=== PATIENT | female | born 1975 | race Caucasian/White ===

== ENCOUNTER → 2019-10-21 | Outpatient (CLI) | payer OTHER ==
[~2019-10-21] MED LIST: ADVIL200 M3 PO; AUGMENTIN 875-1 EACH PO; FISH OIL 1,0001 EAC9 PO; FLONASE 0.05%50 MCG NARES; IRON325 M1 PO; LINZESS145 MCG PO; LIPITOR40 MG PO; PREVACID15 MG PO; PROAIR HFA8.5 GM INH; PROBIOTIC1 EAC2 PO; SERTRALINE HCL100 MG PO; SINGULAIR 10 MG10 M1 PO; VITAMIN B12-FO1 EAC1 PO; VITAMIN C1000 MG PO; WELLBUTRIN 75 M75 M1 PO
== END ==
LOC: LAB 11:35
PROVIDERS: ATTEND Student in an Organized Health Care Education/Training Program
DX: Z01.812 Encounter for preprocedural laboratory examination (principal); Z11.59 Encounter for screening for other viral diseases

== ENCOUNTER 2019-10-25 06:24 | Day surgery (SDC) | payer OTHER ==
[~2019-10-25] VITALS: Ht 170.2 cm; Wt 103.0 kg
--- NOTE | ~2019-10-25 | O ---
[facility] [place] [address] [place] [address] OPERATIVE REPORT Name: KIRSTEN HOGAN Room #: [facility]-[address] [place] [address] M.R.#: [id number] Admission: 10/25/19 Attend Phys: Ilia Delatorre MD Discharge: Date of : 77 Report #: [id number] THIS REPORT FOR: cc: [facility] - No family physician/PCP [facility] - No family physician/PCP Ilia Delatrore MD ~ CC: [facility] physician/PCP Ilia Delatorre DATE OF SERVICE: 10/25/2019 PREOPERATIVE DIAGNOSES: Chronic tonsillitis, chronic sinusitis, tonsil and adenoid hypertrophy. POSTOPERATIVE DIAGNOSES: Chronic tonsillitis, chronic sinusitis, tonsil and adenoid hypertrophy. OPERATIVE PROCEDURE: Tonsillectomy and adenoidectomy. ANESTHESIA: General endotracheal. DESCRIPTION OF PROCEDURE: The patient was taken to the operating room and placed in a supine position. General anesthesia was induced by endotracheal intubation. Once adequate general anesthesia was obtained, the patient draped in a sterile manner. A James-Kenny mouth gag was placed in the patient's mouth and tongue was deviated upward. Red rubber catheters were placed through the nose and nasopharynx and out the oropharynx and oral cavity to elevate the soft palate and the nasopharynx was visualized indirectly using a mirror. The adenoid was hypertrophied and adenoidectomy was performed by placing the adenoid curette at the base of the vomer and sweeping downward. The adenoid was removed and sent to pathology. Nasopharyngeal packing was placed. The right tonsil was grasped and deviated towards midline. An incision was placed in the anterior tonsillar pillar using the Bovie electrocautery and a plane between tonsillar capsule and tonsillar fossa was established. Dissection was carried out in this plane using the Bovie and hemostasis was achieved during the dissection. Dissection was carried out from superior to inferior. The inferior pole was incised, and posterior tonsillar mucosa was incised. Tonsil was removed and sent to pathology. Left tonsil was removed in exactly the same manner. The area was then irrigated with normal saline. Hemostasis was verified in the tonsillar beds. The nasopharyngeal packing was removed and nasopharynx irrigated. There was adequate hemostasis in the nasopharynx as well. The mouth gag and red rubber catheters were removed. The patient tolerated the procedure [address] [address] OPERATIVE REPORT Name: KIRSTEN HOGAN Room #: 150-2 [facility] M.R.#: [id number] Admission: 10/25/19 Attend Phys: Ilia Delatorre MD Discharge: Date of : 77 Report #: [id number] well. Blood loss was approximately 25 mL. The patient was then awoken and taken to recovery room in stable condition for postoperative monitoring. By: [id number] Ilia Delatorre MD /nt
[2019-10-25 07:23] VITALS: BP 103/66
--- NOTE | 2019-10-25 08:50 | H ---
[facility] [place] [address] [place] [address] HISTORY AND PHYSICAL Name: KIRSTEN HOGAN Room #: [facility]..#: [id number] Admission: 10/25/19 Attend Phys: Ilia Delatorre MD Discharge: Date of : 77 Report #: [id number] THIS REPORT FOR: cc: FAM - No family physician/PCP FAM - No family physician/PCP Ilia Delatorre MD ~ CC: BRENNON Delatorre Her procedure is scheduled for October 24. HISTORY OF PRESENT ILLNESS: The patient has chronic sinusitis with headaches, nasal congestion, difficulty breathing on the left side of her nose. She was tested for allergies many years ago. She takes Flonase, Zyrtec, and Singulair on a regular basis. She had a CT scan of her sinuses which showed that her sinuses were completely clear, but she has an enlarged adenoid. PAST MEDICAL HISTORY: Otherwise, not significant. MEDICATIONS: Zoloft, Wellbutrin, pravastatin, albuterol. ALLERGIES: She has no known drug allergies. PHYSICAL EXAMINATION: She had 3+ enlarged tonsils with some debris in the crypts. Her nose was clear. IMPRESSION: Symptoms of chronic sinusitis with a normal CT scan. PLAN: Tonsillectomy and adenoidectomy. <ELECTRONICALLY SIGNED> By: Ilia Delatorre MD 10/25/19 0850 [id number] Ilia Delatorre MD /yves
[2019-10-25 09:12] VITALS: BP 103/66
--- NOTE | 2019-10-26 17:06 | PATH ---
[facility] [address] [place] [address] [place] [address] PATHOLOGY RPT PROCEDURE Name: TAHMINA MYLES Room #: [facility] M.R.#: [id number] Admission: 10/25/19 Date of : 77 Discharge: 10/25/19 Report #: [id number] Path Case #: [id number] [facility] Accession Number: [id number] . 01 Material submitted: . PART A: tonsil - ADENOID AND RIGHT TONSIL. Modifiers: right PART B: tonsil - LEFT TONSIL. Modifiers: left . 01 Clinical history: . Chronic tonsillitis, hypertrophy of tonsils and adenoid . 02 Diagnosis: A. Adenoid and right tonsil, adenoidectomy and right tonsillectomy: - Acutely inflamed epithelium overlying lymphoid tissue with reactive hyperplasia. . B. Tonsil, left tonsillectomy: - Acutely inflamed epithelium overlying lymphoid tissue with reactive hyperplasia. (IUV:pit 10/26/2019) QTP 10/26/2019 1523 Local . 02 Electronically signed: . Cathy Dee MD, Pathologist NPI- [id number] . 01 Gross description: . A. The specimen is received in formalin labeled "Tahmina Myles, adenoid and right tonsil" and consists of a pink-hamilton tonsil weighing 5 g and measuring 3.0 x 2.5 x 1.1 cm. Sectioning reveals crypts filled with yellow-hamilton material and compliance representative dealer sections are submitted in A1. Also received are multiple fragments of pink-hamilton tissue consistent with adenoid measuring 2.0 x 1.5 cm. The tissue is entirely submitted in A1. . B. The specimen is received in formalin labeled "Tahmina Myles, left tonsil" and consists of a pink-hamilton tonsil weighing 5 g and measuring 2.8 x 2.2 x 1.4 cm. Sectioning reveals focal crypts with yellow-hamilton material and compliance representative dealer sections are submitted in B1. (SDY; 10/25/2019) SYU/SYU 10/25/2019 1729 Local . 02 Pathologist provided ICD-10: J03.90, J35.3 . 02 CPT . 312911, 478940 Specimen Comment: A courtesy copy of this report has been sent to [phone] [place] [address] PATHOLOGY RPT PROCEDURE Name: TAHMINA MYLES Room #: [facility] M.R.#: [id number] Admission: 10/25/19 Date of : 77 Discharge: 10/25/19 Report #: [id number] Path Case #: [id number] Specimen Comment: Report sent to Performed at: [address], [place], [place] [id number] MD Neal Dooley MD Phone: [phone] Performed at: [address] [id number] MD Cathy Dee MD Phone: [phone]
== END 2019-10-25 11:00 | disposition home or self-care (01) ==
LOC: OR → TBA 07:00 → OR 08:50
PROVIDERS: ATTEND Otolaryngology
DX: J35.03 Chronic tonsillitis and adenoiditis (principal); E78.00 Pure hypercholesterolemia, unspecified; E78.5 Hyperlipidemia, unspecified; F32.9 Major depressive disorder, single episode, unspecified; F41.9 Anxiety disorder, unspecified; G47.30 Sleep apnea, unspecified; F17.210 Nicotine dependence, cigarettes, uncomplicated; Z98.890 Other specified postprocedural states; Z79.899 Other long term (current) drug therapy
CPT/HCPCS: 50010; 50101; 62110; 62900; 70005